=== PATIENT | female | born 1955 | race Caucasian/White ===

== ENCOUNTER 2020-05-07 12:01 | Emergency (ER) | payer MEDICARE ==
[~2020-05-07] VITALS: Ht 154.9 cm; Wt 67.0 kg
[2020-05-07] MEDS ORDERED: DILTIAZEM ER180 M2 PO (12:08)
[2020-05-07] MEDS ORDERED: PREDNISONE 5 MG5 MG PO (12:08)
[2020-05-07] MEDS ORDERED: REQUIP 1 MG TABL1 M1 PO (12:09)
[2020-05-07] MEDS ORDERED: SINGULAIR4 MG PO (12:09)
[2020-05-07] MEDS ORDERED: MUCINEX600 MG PO (12:09)
[2020-05-07 14:03] VITALS: BP 141/70
== END 2020-05-07 14:03 | disposition home or self-care (01) ==
LOC: M.ERS 12:01
DX: J44.1 Chronic obstructive pulmonary disease with (acute) exacerbation (principal); Z20.828 Contact with and (suspected) exposure to other viral communicable diseases; I10 Essential (primary) hypertension; Z79.899 Other long term (current) drug therapy; Z88.2 Allergy status to sulfonamides

== ENCOUNTER 2021-02-17 14:20 | Emergency (ER) | payer MEDICARE ==
[~2021-02-17] VITALS: Ht 154.9 cm; Wt 64.4 kg
[~2021-02-17 14:20] MED LIST: CARDIZEM LA240 M1 PO; MUCINEX600 MG PO; PREDNISONE 5 MG5 MG PO; REQUIP 1 MG TABL1 M1 PO; SINGULAIR4 MG PO
[2021-02-17] MEDS ORDERED: LIPITOR 10 MG10 M1 PO (14:34)
[2021-02-17] MEDS ORDERED: CALCIUM500 MG PO (14:34)
[2021-02-17] MEDS ORDERED: FISH OIL 1,0001 EAC9 PO (14:34)
[2021-02-17] MEDS ORDERED: VITAMIN D310 MCG PO (14:34)
[2021-02-17] MEDS ORDERED: VITAMIN E1000 UNIT PO (14:34)
[2021-02-17] MEDS ORDERED: MULTI VITAMIN1 EACH PO (14:35)
[2021-02-17] MEDS ORDERED: ALBUTEROL2.5 MG/0.1 INH (14:36)
[2021-02-17] MEDS ORDERED: PULMICORT0.5 MG/21 INH (14:36)
[2021-02-17 15:32] LABS: ABSOLUTE BASOPHILS 0.1 thou/uL (0.0-0.2); ABSOLUTE EOSINOPHILS 0.1 thou/uL (0.0-0.7); ABSOLUTE MONOCYTES 0.5 thou/uL (0.0-1.2); ABSOLUTE NEUTROPHILS 6.2 thou/uL (1.6-8.1); BASOPHILS 1.1 %; EOSINOPHILS 1.2 %; HEMATOCRIT 40.7 % (37.0-47.0); HEMOGLOBIN 14.1 gm/dL (12.0-15.0); LYMPHOCYTES 22.9 %; MCH 31.9 pg (26.0-34.0); MCHC 34.7 g/dL (28.0-37.0); MCV 92.1 fL (80.0-100.0); MONOCYTES 5.3 %; MPV 8.6 fl. (7.2-11.1); NUCLEATED RBCS 0 /100WBC; PLATELET COUNT* 263 thou/uL (150-400); POLYS 69.5 %; RBC 4.43 mil/uL (4.20-5.00); RDW-CV 13.2 % (10.5-14.5); WBC 8.9 thou/uL (4.0-11.0)
[2021-02-17 15:35] LABS: INFLUENZA A ANTIGEN Negative (Negative); INFLUENZA B ANTIGEN Negative (Negative)
[2021-02-17 15:42] LABS: CALCIUM 9.3 mg/dL (8.5-10.1); CREATININE 0.8 mg/dL (0.6-1.3); POTASSIUM 4.1 mmol/L (3.5-5.1)
[2021-02-17 15:52] LABS: ALBUMIN 3.7 g/dL (3.4-5.0); TOTAL BILIRUBIN 0.2 mg/dL (<0.1-1.0); TOTAL PROTEIN 7.3 g/dL (6.4-8.2)
--- NOTE | 2021-02-17 17:07 | EKG ---
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 02/17/21 1707 1518 1518 Jerel Drake MD, [facility] /EPI
[2021-02-17] MEDS ORDERED: DOXYCYCLINE 10100 M2 PO (17:52)
[2021-02-17] MEDS ORDERED: PREDNISONE 20 M20 MG PO (17:52)
[2021-02-17 18:11] VITALS: BP 150/51
== END 2021-02-17 18:12 | disposition home or self-care (01) ==
LOC: M.ERS 14:20
PROVIDERS: Nurse Practitioner Psychiatric/Mental Health
DX: J18.9 Pneumonia, unspecified organism (principal); Z20.822 Contact with and (suspected) exposure to COVID-19; I10 Essential (primary) hypertension; J44.9 Chronic obstructive pulmonary disease, unspecified; Z88.2 Allergy status to sulfonamides; Z98.51 Tubal ligation status